=== PATIENT | male | born 1945 | race Caucasian/White ===

== ENCOUNTER 2018-04-13 14:17 | Emergency (ER) | payer MEDICARE ==
[~2018-04-13] VITALS: Ht 167.6 cm; Wt 106.4 kg
[2018-04-13 14:28] VITALS: Ht 167.6 cm; Wt 106.4 kg
[2018-04-13] MEDS ORDERED: FLOMAX0.4 MG PO (15:10)
[2018-04-13] MEDS ORDERED: LYRICA200 MG PO (15:11)
[2018-04-13] MEDS ORDERED: LEXAPRO10 MG PO (15:12)
[2018-04-13] MEDS ORDERED: ZOCOR40 MG PO (15:12)
[2018-04-13] MEDS ORDERED: GLUCOPHAGE850 MG PO (15:12)
[2018-04-13] MEDS ORDERED: MOBIC7.5 MG PO (15:13)
[2018-04-13] MEDS ORDERED: LASIX20 MG PO (15:14)
[2018-04-13] MEDS ORDERED: ZESTRIL20 MG PO (15:14)
[2018-04-13] MEDS ORDERED: GLIMEPIRIDE4 MG PO (15:15)
[2018-04-13] MEDS ORDERED: METHADONE 10 MG10 MG PO (15:16)
[2018-04-13 15:19] LABS: ALBUMIN 3.9 g/dL (3.4-5.0); ANION GAP 11.2 mmol/L (8-16); BILIRUBIN - TOTAL 0.49 mg/dL (0.2-1.3); CALCIUM 9.4 mg/dL (8.5-10.1); CARBON DIOXIDE 32.7 mmol/L (21.0-32.0); CREATININE - SERUM 1.3 mg/dL (0.6-1.3); POTASSIUM - SERUM 4.9 mmol/L (3.5-5.1); PROTEIN - SERUM 7.8 g/dL (6.4-8.2)
[2018-04-13] MEDS ORDERED: LANTUS INSULIN10 ML SQ (15:19)
[2018-04-13 15:21] LABS: APPEARANCE CLEAR (CLEAR); BILIRUBIN NEGATIVE (NEGATIVE); COLOR YELLOW (YELLOW); GLUCOSE NEGATIVE (NEGATIVE); KETONE NEGATIVE (NEGATIVE); NITRITE NEGATIVE (NEGATIVE); PROTEIN NEGATIVE (NEGATIVE); UROBILINOGEN NORMAL (NORMAL)
[2018-04-13 15:22] LABS: BASOPHILS 0.1 % (0-2); EOSINOPHILS 0.7 % (0-7); HEMATOCRIT 42.3 % (42.0-54.0); HEMOGLOBIN 14.1 g/dL (13.5-17.5); IMMATURE GRANULOCYTES 0.4 % (0-5); LYMPHOCYTES 5.1 % (15-50); MCH 29.1 pg (26.0-34.0); MCHC 33.3 g/dL (31.0-37.0); MCV 87.2 fL (80.0-100.0); MEAN PLATELET VOLUME 9.9 fL (7.4-10.4); MONOCYTES 7.8 % (2-11); NEUTROPHILS 85.9 % (40-80); PLATELET COUNT 262 10x3/uL (130-400); RBC 4.85 10x6/uL (4.20-6.10); RDW 14.3 % (11.5-14.5); WBC 18.7 10x3/uL (4.8-10.8)
[2018-04-13 17:56] LABS: APPEARANCE CLEAR (CLEAR); BILIRUBIN NEGATIVE (NEGATIVE); COLOR YELLOW (YELLOW); GLUCOSE NEGATIVE (NEGATIVE); KETONE NEGATIVE (NEGATIVE); NITRITE NEGATIVE (NEGATIVE); PROTEIN NEGATIVE (NEGATIVE); UROBILINOGEN NORMAL (NORMAL)
[2018-04-13 18:10] VITALS: BP 113/61
== END 2018-04-13 18:05 | disposition left against medical advice (07) ==
LOC: D.ER 14:17
PROVIDERS: Emergency Medicine
DX: R50.9 Fever, unspecified (principal); J18.9 Pneumonia, unspecified organism; E11.9 Type 2 diabetes mellitus without complications; I10 Essential (primary) hypertension; J44.9 Chronic obstructive pulmonary disease, unspecified

== ENCOUNTER 2019-11-17 05:20 | Day surgery (SDC) | payer OTHER ==
[2018-04-13 14:28] VITALS: Ht 172.7 cm; Wt 101.6 kg
[2019-11-16 10:29] LABS: HEMATOCRIT 39.9 % (42.0-54.0); HEMOGLOBIN 13.3 g/dL (13.5-17.5); MCH 28.7 pg (26.0-34.0); MCHC 33.3 g/dL (31.0-37.0); MCV 86.2 fL (80.0-100.0); MEAN PLATELET VOLUME 8.8 fL (7.4-10.4); RBC 4.63 10x6/uL (4.20-6.10); RDW 14.4 % (11.5-14.5); WBC 7.8 10x3/uL (4.8-10.8)
[2019-11-16 10:38] LABS: ANION GAP 13.4 mmol/L (8-16); CALCIUM 9.2 mg/dL (8.5-10.1); CARBON DIOXIDE 29.1 mmol/L (21.0-32.0); CREATININE - SERUM 1.6 mg/dL (0.6-1.3); POTASSIUM - SERUM 5.5 mmol/L (3.5-5.1)
[2019-11-16 10:41] LABS: APTT 27.4 SECONDS (22.8-39.4); INR 0.91 (0.85-1.17); PROTIME 12.2 SECONDS (11.6-15.0)
[~2019-11-17] VITALS: Ht 172.7 cm; Wt 101.6 kg
[~2019-11-17 05:20] MED LIST: FLOMAX0.4 MG PO; GLIMEPIRIDE4 MG PO; GLUCOPHAGE850 MG PO; LANTUS INSULIN10 ML SQ; LASIX20 MG PO; LEXAPRO10 MG PO; LYRICA200 MG PO; METHADONE 10 MG10 MG PO; MOBIC7.5 MG PO; ZESTRIL20 MG PO; ZOCOR40 MG PO
[2019-11-17] MEDS ORDERED: LANTUS (05:39)
[2019-11-17 06:05] VITALS: BP 127/65; BMI 34.1
--- NOTE | 2019-11-17 09:35 | NUR ---
0930 IV DC'D. CATHETER TIP INTACT. NO BLEEDING/SWELLING AT SITE AFTER HOLDING PRESSURE. BANDAID APPLIED.
== END 2019-11-17 10:12 | disposition home or self-care (01) ==
LOC: D.OPS 05:20 → D.PAN 07:30 → D.OPS 07:30
PROVIDERS: Anesthesiology; ATTEND Podiatrist Foot & Ankle Surgery
DX: M86.9 Osteomyelitis, unspecified (principal); J44.9 Chronic obstructive pulmonary disease, unspecified; E11.9 Type 2 diabetes mellitus without complications; R06.02 Shortness of breath

== ENCOUNTER 2020-03-14 10:53 | Inpatient (IN) | payer OTHER ==
[2020-03-14] VITALS (7 sets, daily range): BP systolic 133–157; BP diastolic 63–76; BMI 35.6
[~2020-03-14] VITALS: Ht 172.7 cm; Wt 106.1 kg
[~2020-03-14 10:53] MED LIST changes: +LANTUS
[2020-03-14] MEDS ORDERED: LYRICA200 MG PO (11:04)
[2020-03-14] MEDS ORDERED: SYMBICORT 16010.2 GM INH (11:06)
[2020-03-14] MEDS ORDERED: SPIRIVA18 MCG INH (11:07)
[2020-03-14] MEDS ORDERED: TRELEGY ELLIPT1 EACH INH (11:07)
[2020-03-14] MEDS ORDERED: VITAMIN D1000 UNIT PO (11:08)
[2020-03-14] MEDS ORDERED: VITAMIN B-121000 MCG PO (11:08)
[2020-03-14 12:08] LABS: BASOPHILS 0.2 % (0-2); EOSINOPHILS 0.1 % (0-7); HEMATOCRIT 45.4 % (42.0-54.0); HEMOGLOBIN 14.5 g/dL (13.5-17.5); IMMATURE GRANULOCYTES 0.5 % (0-5); LYMPHOCYTES 4.3 % (15-50); MCH 29.1 pg (26.0-34.0); MCHC 31.9 g/dL (31.0-37.0); MCV 91.2 fL (80.0-100.0); MEAN PLATELET VOLUME 9.9 fL (7.4-10.4); MONOCYTES 5.6 % (2-11); NEUTROPHILS 89.3 % (40-80); RBC 4.98 10x6/uL (4.20-6.10); WBC 13.3 10x3/uL (4.8-10.8)
[2020-03-14 12:16] LABS: BILIRUBIN NEGATIVE (NEGATIVE); GLUCOSE NEGATIVE (NEGATIVE); KETONE NEGATIVE (NEGATIVE); NITRITE NEGATIVE (NEGATIVE); PLATELET COUNT 214 10x3/uL (130-400); UROBILINOGEN NORMAL (NORMAL)
[2020-03-14 12:21] LABS: CALC OSMOLALITY 272 mosm/kg (275-300); CALCIUM 8.5 mg/dL (8.5-10.1); CARBON DIOXIDE 33.5 mmol/L (21.0-32.0); CHLORIDE - SERUM 97 mmol/L (98-107); CREATININE - SERUM 1.6 mg/dL (0.6-1.3); GLUCOSE 112 mg/dL (74-106); POTASSIUM - SERUM 3.9 mmol/L (3.5-5.1); SODIUM 135 mmol/L (136-145); UREA NITROGEN 19 mg/dL (7-18); eGFR NON AFRICAN AMERICAN 45 mL/min (90-120)
[2020-03-14 12:30] LABS: APTT 29.7 SECONDS (22.8-39.4); INR 1.09 (0.85-1.17); PROTIME 14.1 SECONDS (11.6-15.0)
[2020-03-14 12:31] LABS: D-DIMER-QUANTITATIVE 0.89 ug/mLFEU (0.20-0.54)
[2020-03-14 12:42] LABS: ALBUMIN 3.7 g/dL (3.4-5.0); ALKALINE PHOSPHATASE 56 U/L (30-120); ALT (SGPT) 37 U/L (10-68); BILIRUBIN - TOTAL 0.53 mg/dL (0.2-1.3); CKMB 1.2 U/L (0.0-3.6); CREATINE KINASE 203 UL (21-232); PRO BNP 163 pg/mL (0-125); PROTEIN - SERUM 6.8 g/dL (6.4-8.2); TROPONIN-I < 0.017 ng/mL (0.000-0.060)
--- NOTE | 2020-03-14 17:50 | NUR ---
NEW PATIENT ADMIT FROM ER VIA WC ACCOMPANIED BY HOSPITAL PERSONNEL. PATIENT TO HOSPITAL BED WITHOUT DIFFICULTY. PATIENT IS ALERT AND ORIENTED X 4. PATIENT APPEARS IN NO ACUTE DISTRESS. PATIENT DENIES ANY NEEDS OR PAIN. ORIENTED TO ROOM AND CALL LIGHT . WILL CONTINUE WITH PLAN OF CARE. SR UPX 2 BED IN LOW POSITIION AND CALL LIGHT IN REACH.
--- NOTE | 2020-03-14 20:10 | NUR ---
REPORT RECEIVED AND ROUNDING COMPLETE. PATIET SITTING ON THE SIDE OF HIS BED TALKING ON HIS CELL PHONE. RIGHT WRIST PIV THAT IS RUNNING FLUIDS AT THIS TIME, NO S/SX OF INFILTRATION. ASSESMENT COMPLETE. LUNGS DIMINISHED, NO S/SX OF DISTRESS AT THIS TIME. PATIENT ASKED FOR A BRUSH WHICH HE RECEIVED. CALL LIGHT WITHIN REACH AND BED IN LOWEST LOCKED POSITION.
[2020-03-15 04:00] VITALS: BP 135/71
[2020-03-15 06:24] LABS: BASOPHILS 0 % (0-2); EOSINOPHILS 0 % (0-7); HEMATOCRIT 43.4 % (42.0-54.0); HEMOGLOBIN 14.1 g/dL (13.5-17.5); IMMATURE GRANULOCYTES 0.4 % (0-5); LYMPHOCYTES 4.1 % (15-50); MCHC 32.5 g/dL (31.0-37.0); MEAN PLATELET VOLUME 9.6 fL (7.4-10.4); MONOCYTES 3.5 % (2-11); PLATELET COUNT 206 10x3/uL (130-400); RBC 4.87 10x6/uL (4.20-6.10); RDW 15.6 % (11.5-14.5); WBC 12.3 10x3/uL (4.8-10.8)
[2020-03-15 06:37] LABS: APTT 31.4 SECONDS (22.8-39.4); INR 1.15 (0.85-1.17); PROTIME 14.7 SECONDS (11.6-15.0)
[2020-03-15 06:51] LABS: MCV 89.1 fL (80.0-100.0)
[2020-03-15 06:59] LABS: ALBUMIN 3.3 g/dL (3.4-5.0); ALKALINE PHOSPHATASE 53 U/L (30-120); ALT (SGPT) 37 U/L (10-68); BILIRUBIN - TOTAL 0.28 mg/dL (0.2-1.3); CALCIUM 8.1 mg/dL (8.5-10.1); CARBON DIOXIDE 29.3 mmol/L (21.0-32.0); CHLORIDE - SERUM 97 mmol/L (98-107); CREATININE - SERUM 1.5 mg/dL (0.6-1.3); MAGNESIUM - SERUM 1.9 mg/dL (1.8-2.4); PHOSPHOROUS 2.4 mg/dL (2.5-4.9); POTASSIUM - SERUM 4.2 mmol/L (3.5-5.1); PRO BNP 343 pg/mL (0-125); PROTEIN - SERUM 6.9 g/dL (6.4-8.2); SODIUM 132 mmol/L (136-145); THYROID STIMULATING HORMONE 1.37 uIU/mL (0.36-3.74); UREA NITROGEN 22 mg/dL (7-18); eGFR NON AFRICAN AMERICAN 49 mL/min (90-120)
[2020-03-15 07:00] LABS: CALC OSMOLALITY 275 mosm/kg (275-300); GLUCOSE 251 mg/dL (74-106); TROPONIN-I < 0.017 ng/mL (0.000-0.060)
[2020-03-15 09:26] VITALS: BP 120/50
[2020-03-15 13:08] VITALS: Ht 172.7 cm; Wt 106.1 kg
[2020-03-15 15:52] VITALS: BP 130/59
--- NOTE | 2020-03-15 16:21 | NUR ---
PT REFUSING BIOPSY AND REQUEST TO BE DISCHARGED SO THAT HE CAN FOLLOW UP WITH HIS ONCOLOGIST IN [place]. AND NOTIFIED. WILL CTM.
--- NOTE | 2020-03-15 18:25 | NUR ---
PT DISCHARGED HOME VIA WHEELCHAIR WITH FAMILY. PIV REMOVED WITH CATHETER TIP FULLY INTACT. PT SIGNED DISCHARGE INSTRUCTIONS AND REMOVED ALL VALUABLES FROM THE ROOM.
[2020-03-18 15:08] LABS: AEROBE ID Final report (())
== END 2020-03-15 18:25 | disposition home or self-care (01) | DRG 181 ==
LOC: D.ER 10:53 → D.M2 16:53
PROVIDERS: Family Medicine; ADMIT Family Medicine; ATTEND Family Medicine
DX: D49.1 Neoplasm of unspecified behavior of respiratory system (principal); E87.1 Hypo-osmolality and hyponatremia; N17.9 Acute kidney failure, unspecified; J44.1 Chronic obstructive pulmonary disease with (acute) exacerbation; I10 Essential (primary) hypertension; E78.5 Hyperlipidemia, unspecified